=== PATIENT | male | born 1975 | race African-American/Black ===

== ENCOUNTER 2016-10-08 12:52 | Emergency (ER) | payer OTHER ==
--- NOTE | ~2016-10-08 | EKG ---
PATIENT: ISRRAEL LOVETT UNIT #: [id number] Ventricular Rate: 94 BPM Atrial Rate: 94 BPM P-R Interval: 142 ms QRS Duration: 86 ms Q-T Interval: 368 ms QTC Calculation(Bezet): 460 ms P [place]: 50 degrees Calculated R [place]: 10 degrees Calculated T [place]: 48 degrees Diagnosis Line: Normal sinus rhythm Diagnosis Line: Minimal voltage criteria for LVH, may be normal Diagnosis Line: variant Diagnosis Line: Non Diagnostic Q in Lead Inferior leads Diagnosis Line: Abnormal ECG Diagnosis Line: When compared with ECG of 16-DEC-2014 12:26, Diagnosis Line: No significant change was found Diagnosis Line: Confirmed by ALBA RAMIREZ MD ([id number]) on 10/09/2016 Diagnosis Line: 9:15:24 PM INTERPRETING MD: ASHLEY ORELLANA
--- NOTE | ~2016-10-08 | CR72 ---
[facility] A Service of [facility] & [facility] RADIOLOGY TEXT RESULTS PATIENT: ISRRAEL LOVETT LOCATION: [facility] : 71 UNIT #: [id number] AGE: [address]: Vivi Méndez MD SEX: M ORDER DR: [id number] [facility] [address] [facility] [place], [place] [address] [id number] E MR#: [id number] #: [id number] NAME: ISRRAEL LOVETT. : 1975 SEX: M STUDY DATE/TIME: 10/08/2016 11:56 UNIT: [facility] ROOM: STUDY DESCRIPTION: CR Chest Single View Portable Attending Physician: Vivi Méndez M.D. Ordering Physician: Vivi Méndez M.D. Primary Care Physician: [facility] MEDICAL IMAGING REPORT This report is preliminary unless electronic signature is present EXAM Portable chest, 10/08/2016. HISTORY A 41-year-old male with left-side rib pain, chest pain. Symptoms noted today. Past smoker with history of diabetes, DVTs. COMPARISON CT angio chest for PE dates 12/16/2014. FINDINGS AP sitting portable chest demonstrates a large body habitus. The lower left ribs are difficult to evaluate. Heart size is normal given the inspiratory effort. Mediastinal contours are preserved. Bilateral lungs are clear with no infiltrates and no evidence for effusion or mass. IMPRESSION Large body habitus with a low lung volumes. No acute chest finding Dictated by... Oc Leung M.D. THIS IS AN ELECTRONICALLY VERIFIED REPORT Oc Leung M.D. at 10/08/2016 2:17 PM CODEY/kelvin TD: 10/08/2016 14:11 JOB #: [id number] MEDICAL IMAGING REPORT Page 1 of 1 COPY
[2016-10-08 11:59] LABS: BASOPHIL# 0.1 X10e3 (0-0.3); BASOPHIL% 0.8 % (0-2.5); DIFF IND NO; EOSINOPHIL# 0.2 X10e3 (0-0.7); EOSINOPHIL% 1.9 % (0.0-7.0); HEMATOCRIT 40.5 % (38.0-50.0); HEMOGLOBIN 13.8 gm/dL (13.0-16.0); LYMPHOCYTE# 3.1 X10e3 (1.0-3.5); LYMPHOCYTE% 31.3 % (17.0-45.0); MEAN CELL VOLUME 97.2 FL (83-96); MEAN PLATELET VOLUME 8.7 FL (6.5-11.5); MONOCYTE# 0.8 X10e3 (0-1.0); MONOCYTE% 8.2 % (3.0-12.0); NEUTROPHIL# 5.6 X10e3 (1.5-7.1); NEUTROPHIL% 57.8 % (40-75); PLATELET COUNT 210 X10e3 (140-420); RED BLOOD COUNT 4.17 X10e (3.90-5.60); WHITE BLOOD COUNT 9.7 X10e3 (4.0-10.5)
[2016-10-08 12:06] LABS: POC - CKMB 1.1 ng/mL (0.0-7.9); POC - TROPONIN <0.05 ng/mL (<=0.05)
[2016-10-08 12:13] LABS: PARTIAL THROMBOPLASTIN TIME 27.9 SECONDS (23.5-31.3); PROTHROMBIN TIME (PATIENT) 10.1 SECONDS (9.6-11.5)
[2016-10-08 12:25] LABS: ALBUMIN SERUM 4.4 g/dL (3.5-5.0); BILIRUBIN, DIRECT 0.1 mg/dL (0.0-0.2); BILIRUBIN,INDIRECT 0.3 mg/dL (0.0-0.9); BILIRUBIN,TOTAL 0.4 mg/dL (0.2-2.0); BUN/CREATININE RATIO 14.7; CALCIUM SERUM 9.1 mg/dL (8.4-10.2); CREATININE SERUM 1.7 mg/dL (0.6-1.4); POTASSIUM 3.9 mmol/L (3.5-5.1); PROTEIN TOTAL SERUM 7.9 g/dL (6.0-8.3)
[2016-10-08 12:46] LABS: URINE SOURCE CLEAN CATCH
[2016-10-08 12:52] LABS: URINE APPEARANCE CLOUDY; URINE BILIRUBIN NEG (NEG); URINE BLOOD NEG (NEG); URINE COLOR YELLOW; URINE GLUCOSE NEG (NEG); URINE KETONE TRACE (NEG); URINE LEUKOCYTE ESTERASE TRACE (NEG); URINE NITRATE NEG (NEG); URINE PROTEIN 1+ (NEG); URINE SPECIFIC GRAVITY 1.017 (1.003-1.035)
[~2016-10-08 12:52] MED LIST: COUMADIN5 MG PO; GLIPIZIDE10 MG/BOTT PO; GLUCOPHAGE500 M1 PO; HYDROCHLOROTH12.5 MG PO; LOSARTAN POTASS50 MG PO; LOVENOX150 MG/ML SQ; XARELTO15 MG PO
[2016-10-08 12:56] LABS: URBCS1 AUWI 0-2 /[HPF] (0-2); URINE BACTERIA AUWI NEG (NEGATIVE); URINE SQUAMOUS EPITHELIAL CELL OCC /[HPF]; UWBCS1 AUWI 0-2 (0-5)
[2016-10-08 13:02] LABS: CULTURE INDICATED? NO
== END 2016-10-08 14:50 | disposition home or self-care (01) ==
LOC: CED 12:52
PROVIDERS: Emergency Medicine
DX: R07.89 Other chest pain (principal); N28.9 Disorder of kidney and ureter, unspecified; I10 Essential (primary) hypertension; E11.9 Type 2 diabetes mellitus without complications; Z86.711 Personal history of pulmonary embolism; Z86.718 Personal history of other venous thrombosis and embolism; Z87.891 Personal history of nicotine dependence
CPT/HCPCS: 36415; 71010; 80048; 80076; 81003; 82553; 84484; 85025; 85379; 85610; 85730; 93005; 99284; G0480